=== PATIENT | male | born 1940 | race Asian ===

== ENCOUNTER 2016-09-18 08:38 | Outpatient (CLI) | payer OTHER ==
[~2016-09-18 08:38] MED LIST: ACID REDUCER150 MG PO; AMITRIPTYLIN50 MG PO; COLC0.6T6 PO; DIOVAN HC1 PO; GABA100C2 PO; GLIP10TA55 PO; HYDR-3182 PO; HYDR25TA60 PO; LOFIBRA54 MG PO; PANT40TA PO; SIMV40TA57 PO
== END 2016-09-18 19:48 | disposition home or self-care (01) ==
LOC: RAD 08:38
DX: M54.12 Radiculopathy, cervical region (principal)

== ENCOUNTER 2016-11-07 09:18 | Outpatient (CLI) | payer OTHER | END 2016-11-07 10:30 | disposition home or self-care (01) | LOC: MRI 09:18 | DX: M50.31 Other cervical disc degeneration, high cervical region (principal) ==

== ENCOUNTER 2016-12-05 08:54 | Outpatient (CLI) | payer OTHER | END 2016-12-05 19:04 | disposition home or self-care (01) | LOC: RAD 08:54 | DX: J44.9 Chronic obstructive pulmonary disease, unspecified (principal) ==

== ENCOUNTER 2017-01-29 13:16 | Outpatient (CLI) | payer OTHER | END 2017-01-29 14:20 | disposition home or self-care (01) | LOC: RAD 13:16 | DX: M54.17 Radiculopathy, lumbosacral region (principal) ==

== ENCOUNTER 2017-03-14 13:40 | Emergency (ER) | payer OTHER ==
[~2017-03-14] VITALS: Ht 165.1 cm; Wt 92.5 kg
[2017-03-14 13:46] VITALS: TEMP 98.4
[2017-03-14 16:38] VITALS: BP 170/99
== END 2017-03-14 16:44 | disposition home or self-care (01) ==
LOC: ED 13:40
DX: I10 Essential (primary) hypertension (principal); R42 Dizziness and giddiness
CPT/HCPCS: 99282

== ENCOUNTER 2017-03-31 10:12 | Outpatient (CLI) | payer OTHER ==
[2017-04-01] MEDS ORDERED: AZIT250T3 PO (02:59)
== END 2017-03-31 18:56 | disposition home or self-care (01) ==
LOC: US 10:12 → RAD 10:12
DX: R06.09 Other forms of dyspnea (principal)
CPT/HCPCS: 93005

== ENCOUNTER 2017-04-01 02:31 | Outpatient (CLI) | payer OTHER ==
[2017-04-01] MEDS ORDERED: AZIT250T3 PO (02:59)
== END 2017-04-01 02:34 | disposition short-term general hospital (02) ==
LOC: AMB 02:31
DX: R06.09 Other forms of dyspnea (principal)
CPT/HCPCS: A0425; A0427

== ENCOUNTER 2017-04-01 02:39 | Inpatient (IN) | payer OTHER ==
[~2017-04-01] VITALS: Ht 165.1 cm; Wt 93.2 kg
[2017-04-01 02:50] VITALS: BP 137/83; TEMP 97.8
[2017-04-01] MEDS ORDERED: AZIT250T3 PO (02:59)
[2017-04-01 03:00] LABS: PLATELET COUNT 369 K/uL (142-355)
[2017-04-01 03:30] LABS: POTASSIUM 4.3 mmol/L (3.6-5.2)
[2017-04-01 04:46] VITALS: BP 137/74; TEMP 98.3; Ht 165.1 cm; Wt 93.2 kg
[2017-04-01 07:44] VITALS: BP 132/74; TEMP 98.1
[2017-04-01 12:00] VITALS: BP 148/88; TEMP 98.3
[2017-04-01 16:01] VITALS: BP 158/95; TEMP 98.2
[2017-04-01 20:00] VITALS: BP 179/86; TEMP 98.2
[2017-04-02] VITALS (23 sets, daily range): BP systolic 127–168; BP diastolic 62–109; TEMP 97–98.6
[2017-04-02 05:55] LABS: PLATELET COUNT 334 K/uL (142-355)
[2017-04-02 06:27] LABS: POTASSIUM 6.6 mmol/L (3.6-5.2)
[2017-04-02 11:39] LABS: POTASSIUM 5.4 mmol/L (3.6-5.2)
== END 2017-04-02 16:38 | disposition short-term general hospital (02) | DRG 193 ==
LOC: ED 02:39 → MED/SURG 03:45 → ICU 04-02 11:30
PROVIDERS: Family Medicine
DX: J18.8 Other pneumonia, unspecified organism (principal); J81.0 Acute pulmonary edema; C16.9 Malignant neoplasm of stomach, unspecified; N17.8 Other acute kidney failure; I10 Essential (primary) hypertension; I51.7 Cardiomegaly; E11.649 Type 2 diabetes mellitus with hypoglycemia without coma; E11.65 Type 2 diabetes mellitus with hyperglycemia; Z79.4 Long term (current) use of insulin; R06.09 Other forms of dyspnea
CPT/HCPCS: 36415; 36600; 80048; 80053; 81000; 82550; 82553; 82805; 82948; 83735; 83880; 84484; 85027; 87040; 93005; 94640; 94664; 94668; 94760; 96365; 96372; 99284; J0610; J0696; J1650; J1940; J2270; J2930; J3490

== ENCOUNTER 2017-07-15 14:53 | Outpatient (CLI) | payer OTHER ==
[~2017-07-15 14:53] MED LIST changes: +AZIT250T3 PO
== END 2017-07-15 19:25 | disposition home or self-care (01) ==
LOC: RAD 14:53
DX: M25.432 Effusion, left wrist (principal)

== ENCOUNTER 2017-07-25 11:51 | Emergency (ER) | payer OTHER ==
[~2017-07-25] VITALS: Ht 165.1 cm; Wt 88.0 kg
[2017-07-25 11:54] VITALS: TEMP 98
[2017-07-25 12:22] LABS: PLATELET COUNT 432 K/uL (142-355)
[2017-07-25 12:33] LABS: POTASSIUM 4.8 mmol/L (3.6-5.2)
[2017-07-25 13:05] VITALS: BP 155/99
== END 2017-07-25 13:23 | disposition home or self-care (01) ==
LOC: ED 11:51
DX: R91.8 Other nonspecific abnormal finding of lung field (principal)
CPT/HCPCS: 36415; 80053; 81000; 85027; 93005; 99283

== ENCOUNTER 2017-08-16 11:20 | Emergency (ER) | payer OTHER ==
[~2017-08-16] VITALS: Ht 165.1 cm; Wt 81.6 kg
[2017-08-16 11:36] VITALS: TEMP 97.7
[2017-08-16 12:01] LABS: PLATELET COUNT 299 K/uL (142-355)
[2017-08-16 12:03] LABS: POTASSIUM 5.1 mmol/L (3.6-5.2)
[2017-08-16 14:13] VITALS: BP 123/74
[2017-08-17] MEDS ORDERED: LIPITOR40 MG PO (13:15)
[2017-08-17] MEDS ORDERED: ADLT ASA LOW81 MG (13:15)
[2017-08-17] MEDS ORDERED: CARV12.5 PO (13:16)
[2017-08-17] MEDS ORDERED: CLON0.1T16 PO (13:20)
[2017-08-17] MEDS ORDERED: TAMS0.4C PO (13:21)
[2017-08-17] MEDS ORDERED: MECLIZINE12.5 MG OR (13:22)
[2017-08-17] MEDS ORDERED: NEURONTIN 100M100 MG OR (13:23)
[2017-08-17] MEDS ORDERED: CETIRIZINE10 MG PO (13:23)
[2017-08-17] MEDS ORDERED: CYCL10TA35 PO (13:24)
[2017-08-17] MEDS ORDERED: SODI650T PO (13:25)
== END 2017-08-16 14:13 | disposition home or self-care (01) ==
LOC: ED 11:20
DX: R42 Dizziness and giddiness (principal); N18.9 Chronic kidney disease, unspecified; E11.9 Type 2 diabetes mellitus without complications
CPT/HCPCS: 36415; 80053; 80307; 81000; 85027; 93005; 99283

== ENCOUNTER 2017-08-17 10:24 | Inpatient (IN) | payer OTHER ==
[~2017-08-17] VITALS: Ht 165.1 cm; Wt 83.0 kg
[2017-08-17 11:53] LABS: PLATELET COUNT 307 K/uL (142-355)
[2017-08-17 12:00] LABS: POTASSIUM 5.6 mmol/L (3.6-5.2)
[2017-08-17 12:55] VITALS: BP 134/82; TEMP 97.5; Ht 165.1 cm; Wt 83.0 kg
--- NOTE | 2017-08-17 13:00 | NUR ---
PLACED PT ON TELEMETRY. SR NOTED.
[2017-08-17] MEDS ORDERED: ADLT ASA LOW81 MG (13:15)
[2017-08-17] MEDS ORDERED: LIPITOR40 MG PO (13:15)
[2017-08-17] MEDS ORDERED: CARV12.5 PO (13:16)
[2017-08-17] MEDS ORDERED: CLON0.1T16 PO (13:20)
[2017-08-17] MEDS ORDERED: TAMS0.4C PO (13:21)
[2017-08-17] MEDS ORDERED: MECLIZINE12.5 MG OR (13:22)
[2017-08-17] MEDS ORDERED: CETIRIZINE10 MG PO (13:23)
[2017-08-17] MEDS ORDERED: NEURONTIN 100M100 MG OR (13:23)
[2017-08-17] MEDS ORDERED: CYCL10TA35 PO (13:24)
[2017-08-17] MEDS ORDERED: SODI650T PO (13:25)
[2017-08-17 16:00] VITALS: BP 171/93; TEMP 98.1
[2017-08-17 20:00] VITALS: BP 160/90; TEMP 98.3
[2017-08-18] VITALS: BP 171/93; TEMP 98.7
[2017-08-18 04:00] VITALS: BP 184/96; TEMP 97.9
[2017-08-18 05:11] LABS: PLATELET COUNT 290 K/uL (142-355)
[2017-08-18 05:31] LABS: POTASSIUM 5.1 mmol/L (3.6-5.2)
--- NOTE | 2017-08-18 07:45 | NUR ---
AM ASSESSMENT COMPLETE.
[2017-08-18 08:00] VITALS: BP 166/97; TEMP 97.9
[2017-08-18 12:00] VITALS: BP 162/91; TEMP 98.6
--- NOTE | 2017-08-18 12:00 | NUR ---
PT EATING LUNCH AT THIS TIME, NO C/O
[2017-08-18 16:00] VITALS: BP 185/100; TEMP 98.2
--- NOTE | 2017-08-18 18:00 | NUR ---
PT WATCHING TV, NO VOICED C/O. IV SITE INTACT, FLUIDS INFUISNG W/O DIFF
[2017-08-18 20:23] VITALS: BP 165/91; TEMP 98.7
[2017-08-19] VITALS: BP 160/90; TEMP 98
[2017-08-19 04:00] VITALS: BP 167/92; TEMP 98.2
[2017-08-19 05:03] LABS: PLATELET COUNT 275 K/uL (142-355)
[2017-08-19 05:20] LABS: POTASSIUM 4.6 mmol/L (3.6-5.2)
[2017-08-19 08:00] VITALS: BP 173/99; TEMP 97.9
[2017-08-19 12:00] VITALS: BP 184/102; TEMP 97.6
[2017-08-19 16:00] VITALS: BP 207/108; TEMP 98.3
[2017-08-19 19:55] VITALS: BP 149/83; TEMP 98
[2017-08-20] VITALS: BP 173/91; TEMP 98.4
--- NOTE | 2017-08-20 00:27 | NUR ---
08/19/[address] LAIRD IN TO SPEAK WITH PATIENT AND HIS DAUGHTER CONCERNING PATIENTS ONCOLOGY APPOINTMENTS. DR. LAIRD SPOKE ON THE TELEPHONE WITH ONCOLOGIST WHO STATED PATIENT CAME IN SEVERAL MONTHS AGO AND HAD A PET SCAN DONE AND HAD MISSED THREE APPOINTMENTS AND HAS NOT RESCHEDULED. PT. STATES HE DIDNT REALIZE HE HAD MISSED APPOINTMENTS AND DAUGHTER ALSO WAS UNAWARE. PT. DOES ADMIT THAT HE HAS TROUBLE HEARING AND SOMETIMES UNDERSTANDING WHAT THE DOCTORS ARE TELLING HIM. DR. LAIRD INFORMED BOTH PT. AND DAUGHTER THAT SHE IS VERY CONCERNED ABOUT HIS CANCER AT THIS POINT AND HIS ONCOLOGIST STATES HE WILL MOST LIKELY REQUIRE ANOTHER PET SCAN TO DETERMINE IF CANCER HAS ADVANCED OR SPREAD AND WHAT THE CURRENT TREATMENT PLAN THAT HE WOULD RECOMMEND. DR. LAIRD ADVISED PT AND DAUGHTER THAT ONCOLOGIST WOULD BE IN [place] OFFICE THIS COMING Thursday08/25/2017 AND WOULD WORK HIM IN TO THE SCHEDULE. PT.S DAUGHTER STATES SHE WILL MAKE SURE THAT PATIENT IS THERE TO SEE THE DOCTOR ON THURSDAY IN [place]. PT. DAUGHTER STATES SHE MAY NEED TO TAKE A LEAVE OF ABSENCE FROM HER JOB TO MAKE SURE HE MAKES HIS APPOINTMENTS, DR. LAIRD STATED SHE WOULD BE HAPPY TO FILL OUT ANY FORMS OR LETTERS THAT SHE MAY NEED FOR HER JOB. PATIENT AND DAUGHTER ARE IN AGREEMENT AND WILL DO THIER BEST TO KEEP ALL THE APPOINTMENTS AND COMPLY WITH THE RECOMMENDED TREATMENT. BOTH DENY ANY OTHER QUESTIONS AT THIS TIME.
[2017-08-20 03:57] VITALS: BP 166/92; TEMP 98.1
[2017-08-20 06:52] LABS: PLATELET COUNT 313 K/uL (142-355)
[2017-08-20 07:01] LABS: POTASSIUM 4.6 mmol/L (3.6-5.2)
[2017-08-20 07:41] VITALS: BP 148/82; TEMP 98.4
[2017-08-20 12:00] VITALS: BP 136/84; TEMP 98.2
[2017-08-20 16:07] VITALS: BP 188/102; TEMP 98.2
--- NOTE | 2017-08-20 17:16 | NUR ---
IV D/C'D WITH TIP INTACT PRESSURE DRESSING APPLIED. D/C INSTRUCTIONS GIVEN TO PT. PT VERBALIZED UNDERSTANDING. PT D/C 'D HOME IN STABLE COND VIA WC.
== END 2017-08-20 17:09 | disposition home or self-care (01) | DRG 641 ==
LOC: MED/SURG 10:24
PROVIDERS: ADMIT Family Medicine
DX: E86.0 Dehydration (principal); C16.9 Malignant neoplasm of stomach, unspecified; N18.4 Chronic kidney disease, stage 4 (severe); R42 Dizziness and giddiness; R63.4 Abnormal weight loss; D64.9 Anemia, unspecified; E87.5 Hyperkalemia; I12.9 Hypertensive chronic kidney disease with stage 1 through stage 4 chronic kidney disease, or unspecified chronic kidney disease; E11.22 Type 2 diabetes mellitus with diabetic chronic kidney disease; F03.90 Unspecified dementia, unspecified severity, without behavioral disturbance, psychotic disturbance, mood disturbance, and anxiety; N18.9 Chronic kidney disease, unspecified; E11.9 Type 2 diabetes mellitus without complications
CPT/HCPCS: 36415; 80053; 80307; 81000; 82308; 82575; 82948; 83735; 84100; 84156; 85027; 87040; 93005; 96366; 96372; 99283; J1815; J7120

== ENCOUNTER 2017-09-04 16:44 | Outpatient (CLI) | payer OTHER ==
[~2017-09-04 16:44] MED LIST changes: +ADLT ASA LOW81 MG; +CARV12.5 PO; +CETIRIZINE10 MG PO; +CLON0.1T16 PO; +CYCL10TA35 PO; +LIPITOR40 MG PO; +MECLIZINE12.5 MG OR; +NEURONTIN 100M100 MG OR; +SODI650T PO; +TAMS0.4C PO
== END 2017-09-04 16:47 | disposition short-term general hospital (02) ==
LOC: AMB 16:44
DX: R10.84 Generalized abdominal pain (principal)
CPT/HCPCS: A0425; A0427

== ENCOUNTER 2017-09-04 16:52 | Emergency (ER) | payer OTHER ==
[~2017-09-04] VITALS: Ht 165.1 cm; Wt 81.6 kg
[2017-09-04 16:55] VITALS: TEMP 98
[2017-09-04 18:44] VITALS: BP 134/84
== END 2017-09-04 18:44 | disposition home or self-care (01) ==
LOC: ED 16:52
DX: K59.09 Other constipation (principal)
CPT/HCPCS: 99282

== ENCOUNTER 2017-09-24 10:25 | Outpatient (CLI) | payer OTHER | END 2017-09-24 22:05 | disposition home or self-care (01) | LOC: LABW 10:25 | DX: G30.8 Other Alzheimer's disease (principal); D64.89 Other specified anemias; R79.0 Abnormal level of blood mineral | CPT/HCPCS: 36415; 82728; 83540; 83550 ==

== ENCOUNTER 2017-12-02 11:24 | Outpatient (CLI) | payer OTHER | END 2017-12-02 23:57 | disposition home or self-care (01) | LOC: RAD 11:24 | DX: S99.812A Other specified injuries of left ankle, initial encounter (principal) ==

== ENCOUNTER 2017-12-30 16:34 | Outpatient (CLI) | payer OTHER ==
[2017-12-30] MEDS ORDERED: LANTUS SOLOSTAR SC (17:05)
== END 2017-12-30 16:36 | disposition short-term general hospital (02) ==
LOC: AMB 16:34 → EDBD 16:34 → AMB 16:36
DX: R41.82 Altered mental status, unspecified (principal); W18.39XA Other fall on same level, initial encounter; Y93.89 Activity, other specified; Y92.018 Other place in single-family (private) house as the place of occurrence of the external cause
CPT/HCPCS: A0425; A0427

== ENCOUNTER 2017-12-30 16:37 | Emergency (ER) | payer OTHER ==
[~2017-12-30] VITALS: Ht 165.1 cm; Wt 83.9 kg
[2017-12-30 17:02] LABS: PLATELET COUNT 458 K/uL (142-355)
[2017-12-30] MEDS ORDERED: LANTUS SOLOSTAR SC (17:05)
[2017-12-30 17:45] LABS: POTASSIUM 5.5 mmol/L (3.6-5.2)
[2017-12-30 19:42] VITALS: BP 114/74; TEMP 98
== END 2017-12-30 19:52 | disposition home or self-care (01) ==
LOC: ED 16:37 → EDBD 16:37 → ED 19:52
DX: E11.649 Type 2 diabetes mellitus with hypoglycemia without coma (principal); E87.5 Hyperkalemia; E11.22 Type 2 diabetes mellitus with diabetic chronic kidney disease; N18.5 Chronic kidney disease, stage 5
CPT/HCPCS: 80053; 81000; 85027; 96360; 99284

== ENCOUNTER 2018-01-01 08:36 | Inpatient (IN) | payer OTHER ==
[~2018-01-01] VITALS: Ht 165.1 cm; Wt 85.5 kg
[~2018-01-01 08:36] MED LIST changes: +LANTUS SOLOSTAR SC
[2018-01-01 08:45] VITALS: BP 202/117; TEMP 97.7
[2018-01-01 09:04] LABS: PLATELET COUNT 449 K/uL (142-355)
[2018-01-01 10:23] LABS: POTASSIUM 5.6 mmol/L (3.6-5.2)
[2018-01-01 10:43] VITALS: BP 147/73
[2018-01-01 13:57] VITALS: BP 182/107; TEMP 97.7; Ht 165.1 cm; Wt 85.5 kg
[2018-01-01 16:00] VITALS: BP 187/105; TEMP 97.8
[2018-01-01 19:38] VITALS: BP 145/59; TEMP 97.8
[2018-01-02] VITALS: BP 160/91; TEMP 97.7
[2018-01-02 04:00] VITALS: BP 150/85; TEMP 97.7
[2018-01-02 07:57] VITALS: BP 161/90; TEMP 98.1
[2018-01-02 08:27] LABS: PLATELET COUNT 355 K/uL (142-355)
[2018-01-02 12:24] VITALS: BP 158/86; TEMP 98.1
[2018-01-02 16:25] VITALS: BP 176/97; TEMP 98.2
[2018-01-02 20:00] VITALS: BP 154/91; TEMP 98.4
[2018-01-03] VITALS: BP 162/93; TEMP 98.4
[2018-01-03 04:00] VITALS: BP 162/92; TEMP 98.4
[2018-01-03 05:41] LABS: PLATELET COUNT 333 K/uL (142-355)
[2018-01-03 05:55] LABS: POTASSIUM 4.8 mmol/L (3.6-5.2)
[2018-01-03 08:00] VITALS: BP 146/83; TEMP 98.3
[2018-01-03 12:00] VITALS: BP 151/91; TEMP 97.9
[2018-01-03 16:00] VITALS: BP 137/98; TEMP 98.2
[2018-01-03 19:48] VITALS: BP 176/97; TEMP 98.6
[2018-01-04] VITALS (10 sets, daily range): BP systolic 131–198; BP diastolic 90–111; TEMP 97.4–99
[2018-01-04 07:52] LABS: PLATELET COUNT 341 K/uL (142-355)
[2018-01-05 04:00] VITALS: BP 131/80; TEMP 98
[2018-01-05 05:33] LABS: PLATELET COUNT 311 K/uL (142-355)
[2018-01-05 08:05] VITALS: BP 115/71; TEMP 98.1
[2018-01-05 12:03] VITALS: BP 110/68; TEMP 98.1
[2018-01-05 16:21] VITALS: BP 140/76; TEMP 98.6
[2018-01-05 20:00] VITALS: BP 152/82; TEMP 98.1
[2018-01-06 00:13] VITALS: BP 155/79; TEMP 98.3
[2018-01-06 04:00] VITALS: BP 134/71; TEMP 98.4
[2018-01-06 06:30] LABS: PLATELET COUNT 307 K/uL (142-355)
[2018-01-06 06:45] LABS: POTASSIUM 4.8 mmol/L (3.6-5.2)
[2018-01-06 08:00] VITALS: BP 148/79; TEMP 97.8
[2018-01-06 12:00] VITALS: BP 142/86; TEMP 98.6
[2018-01-06 16:00] VITALS: BP 146/74; TEMP 98
[2018-01-06 20:00] VITALS: BP 151/89; TEMP 98.7
[2018-01-07] VITALS: BP 158/91; TEMP 98.4
[2018-01-07 04:00] VITALS: BP 165/94; TEMP 98.7
[2018-01-07 06:54] LABS: PLATELET COUNT 342 K/uL (142-355)
[2018-01-07 07:17] LABS: POTASSIUM 4.7 mmol/L (3.6-5.2)
[2018-01-07 08:00] VITALS: BP 135/83; TEMP 98.4
[2018-01-07 12:00] VITALS: BP 174/87; TEMP 98.4
[2018-01-07 16:05] VITALS: BP 170/90; TEMP 98.1
[2018-01-07 20:00] VITALS: BP 150/95; TEMP 98.6
[2018-01-08 00:28] VITALS: BP 147/79; TEMP 98.6
[2018-01-08 04:13] VITALS: BP 128/81; TEMP 97.7
[2018-01-08 05:45] LABS: PLATELET COUNT 279 K/uL (142-355)
[2018-01-08 05:50] LABS: POTASSIUM 5.1 mmol/L (3.6-5.2)
[2018-01-08 08:04] VITALS: BP 152/86; TEMP 97.5
[2018-01-08 12:06] VITALS: BP 146/89; TEMP 98.9
[2018-01-08 14:09] VITALS: BP 143/78; TEMP 98.3
== END 2018-01-08 18:40 | disposition swing bed (61) | DRG 638 ==
LOC: ED 08:36 → MED/SURG 12:25 → EDBD 01-08 18:40 → MED/SURG 01-08 18:40
PROVIDERS: Family Medicine; ADMIT Family Medicine
PROC: 30253N1 (ICD-10-PCS; principal; 2018-01-02)
DX: E11.649 Type 2 diabetes mellitus with hypoglycemia without coma (principal); I47.2 Ventricular tachycardia; I12.0 Hypertensive chronic kidney disease with stage 5 chronic kidney disease or end stage renal disease; J44.1 Chronic obstructive pulmonary disease with (acute) exacerbation; J44.0 Chronic obstructive pulmonary disease with (acute) lower respiratory infection; I10 Essential (primary) hypertension; R62.7 Adult failure to thrive; M1A.9XX0 Chronic gout, unspecified, without tophus (tophi); E11.21 Type 2 diabetes mellitus with diabetic nephropathy; R53.1 Weakness; N17.8 Other acute kidney failure; E11.22 Type 2 diabetes mellitus with diabetic chronic kidney disease; N18.5 Chronic kidney disease, stage 5; D64.89 Other specified anemias; E87.5 Hyperkalemia; K21.9 Gastro-esophageal reflux disease without esophagitis; I50.9 Heart failure, unspecified; J20.9 Acute bronchitis, unspecified; F03.90 Unspecified dementia, unspecified severity, without behavioral disturbance, psychotic disturbance, mood disturbance, and anxiety
CPT/HCPCS: 36415; 36600; 80048; 80053; 81000; 82550; 82805; 83735; 83880; 84100; 85027; 86850; 86900; 86901; 86922; 93005; 94640; 94664; 94668; 94760; 96360; 99284; J1815; J1940; J2920; J3490; P9016

== ENCOUNTER 2018-01-08 16:00 | Inpatient (IN) | payer OTHER ==
[~2018-01-08] VITALS: Ht 165.1 cm; Wt 82.1 kg
[2018-01-08 20:00] VITALS: BP 155/83; TEMP 97.5
[2018-01-09 08:16] VITALS: BP 142/85; TEMP 97.8
[2018-01-09 13:33] VITALS: BP 138/64; TEMP 97.4
[2018-01-09 20:00] VITALS: BP 163/104; TEMP 98.7
[2018-01-10 08:00] VITALS: BP 138/81; TEMP 97.9
[2018-01-10 20:00] VITALS: BP 168/96; TEMP 98.2
[2018-01-11 08:26] VITALS: BP 139/75; TEMP 97.9
[2018-01-11 20:00] VITALS: BP 152/74; TEMP 98.5
[2018-01-12 08:22] VITALS: BP 138/86; TEMP 98
[2018-01-12 20:00] VITALS: BP 144/84; TEMP 98
[2018-01-13 08:00] VITALS: BP 126/66; TEMP 99.2
[2018-01-13 20:00] VITALS: BP 140/63; TEMP 98.2
[2018-01-14 08:00] VITALS: BP 117/62; TEMP 99.3
[2018-01-14 20:00] VITALS: BP 135/76; TEMP 97.8
[2018-01-15 05:49] LABS: PLATELET COUNT 266 K/uL (142-355)
[2018-01-15 06:07] LABS: POTASSIUM 4.6 mmol/L (3.6-5.2)
[2018-01-15 08:00] VITALS: BP 114/67; TEMP 98.2
[2018-01-15 20:00] VITALS: BP 140/76; TEMP 97.5
[2018-01-16 09:12] VITALS: BP 108/64; TEMP 97.8
[2018-01-16 20:00] VITALS: BP 142/81; TEMP 97.7
[2018-01-17 08:24] VITALS: BP 111/67; TEMP 98
[2018-01-17 20:00] VITALS: BP 131/74; TEMP 97.6
[2018-01-18 08:27] VITALS: BP 117/68; TEMP 97.7
[2018-01-18 20:00] VITALS: BP 134/84; TEMP 98
[2018-01-19 08:00] VITALS: BP 110/66; TEMP 97.6
[2018-01-19 20:03] VITALS: BP 140/81; TEMP 98.6
[2018-01-20 08:00] VITALS: BP 103/63; TEMP 98.6
== END 2018-01-20 11:25 | disposition home or self-care (01) | DRG 556 ==
LOC: MED/SURG 16:00
PROVIDERS: ADMIT Family Medicine
DX: M62.81 Muscle weakness (generalized) (principal); E11.9 Type 2 diabetes mellitus without complications; M10.9 Gout, unspecified; K21.9 Gastro-esophageal reflux disease without esophagitis; Z86.73 Personal history of transient ischemic attack (TIA), and cerebral infarction without residual deficits; F03.90 Unspecified dementia, unspecified severity, without behavioral disturbance, psychotic disturbance, mood disturbance, and anxiety
CPT/HCPCS: 80053; 85027; 94640; 94664; 94668; 94760